=== PATIENT | male | born 1990 | race Caucasian/White ===

== ENCOUNTER 2020-02-07 21:31 | Emergency (ER) | payer MEDICAID ==
[~2020-02-07] VITALS: Ht 175.3 cm; Wt 99.8 kg
--- NOTE | 2020-02-07 21:50 | NUR ---
DR. JOHNSON AT BEDSIDE FOR MSE.
[2020-02-07] MEDS ORDERED: IBUPROFEN 800 MG TABLET PO ONE (22:00)
[2020-02-07] MEDS ORDERED: HYDROCODONE/APAP 5-325MG TABLET PO ONE (22:00)
[2020-02-07] MEDS ORDERED: HYDROCODONE/APAP 5-325MG TABLET ONE (22:03)
[2020-02-07] MEDS ORDERED: IBUPROFEN 800 MG TABLET ONE (22:03)
[2020-02-07] MEDS ORDERED: AMOXICILLIN-CLAVUL 875-125MG TABLET ONE (22:59)
[2020-02-07] MEDS ORDERED: AMOXICILLIN-CLAVUL 875-125MG TABLET PO ONE (23:00)
[2020-02-07 23:14] VITALS: BP 121/71
--- NOTE | 2020-02-07 23:14 | NUR ---
Patient discharged to home in stable condition. Written and verbal after care instructions given. Patient verbalizes understanding of instructions. Stressed follow up or return to ER for worsening s/s. PATIENT LEFT WITH STABLE GAIT.
== END 2020-02-07 23:15 | disposition home or self-care (01) ==
LOC: ER 21:35
DX: S60.222A Contusion of left hand, initial encounter (principal); Y04.2XXA Assault by strike against or bumped into by another person, initial encounter; Y92.89 Other specified places as the place of occurrence of the external cause
CPT/HCPCS: 73130; A4663

== ENCOUNTER 2021-11-23 11:27 | Emergency (ER) | payer MEDICAID ==
[~2021-11-23] VITALS: Ht 175.3 cm; Wt 113.4 kg
[2021-11-23 13:06] LABS: HEMATOCRIT 40.6 % (36.7-47.1); MEAN CORPUSCULAR HEMOGLOBIN 28.7 uug (23.8-33.4); MEAN CORPUSCULAR VOLUME 81.5 fL (73.0-96.2); PLATELET COUNT (AUTO) 228 K/uL (152-348)
[2021-11-23 13:14] LABS: CARBON DIOXIDE 33 mmol/L (21-32); CHLORIDE 102 mmol/L (98-107); CREATININE 0.8 mg/dL (0.6-1.3); GLUCOSE 109 mg/dL (74-106); POTASSIUM 4.1 mmol/L (3.5-5.1); UREA NITROGEN, BLOOD 9 mg/dL (7-18)
[2021-11-23 13:27] LABS: ALANINE AMINOTRANSFERASE 107 U/L (16-63); ALKALINE PHOSPHATASE 94 U/L (50-136); ASPARTATE AMINOTRANSFERASE 69 U/L (15-37); BILIRUBIN,DIRECT 0.1 mg/dL (0.0-0.2); BILIRUBIN,TOTAL 0.4 mg/dL (0.2-1.0); TOTAL PROTEIN, SERUM 7.1 g/dL (6.4-8.2)
[2021-11-23] MEDS ORDERED: HYDR-3972 PO (14:55)
[2021-11-23] MEDS ORDERED: CLOT15CR27 TP (15:08)
--- NOTE | 2021-11-23 16:01 | NUR ---
PT WAS EVALUATED BY DR GRESHAM. PT WASC D/C'd TO HOME. D/C INSTRUCTIONS GIVEN TO THE PT BY DR GRESHAM.
[2021-11-23 16:04] VITALS: BP 142/73
== END 2021-11-23 16:05 | disposition home or self-care (01) ==
LOC: ER 11:29
DX: I73.9 Peripheral vascular disease, unspecified (principal); R60.0 Localized edema; J45.909 Unspecified asthma, uncomplicated
CPT/HCPCS: 36415; 84484; 85025; 85730; A4663